=== PATIENT | female | born 1990 | race Caucasian/White ===

== ENCOUNTER 2018-10-29 15:30 | Observation (INO) | payer OTHER ==
[2018-10-29 16:33] LABS: Basophils # (auto) 0 uL; Basophils % (auto) 0.3 % (0.0-2.0); Eosinophils # (auto) 0.1 uL; Hematocrit 36.3 % (36.0-46.0); Hemoglobin 12.3 g/dL (12.2-16.2); Lymphocytes # (auto) 1.8 uL; Lymphocytes % (auto) 24.2 % (10.0-50.0); Mean Corpuscular Hemoglobin 29.6 pg (28.0-32.0); Mean Corpuscular Hgb Conc. 33.9 g/dL (32.0-36.0); Mean Corpuscular Volume 87.1 fL (80.0-100.0); Monocytes # (auto) 0.8 uL; Neutrophils # (auto) 4.7 uL; Neutrophils % (auto) 63.5 % (37.0-80.0); Platelet Count (auto) 199 10^3/uL (140-450); Red Blood Cells 4.17 10^6/uL (4.0-5.20); Red Cell Distribution Width 14.1 % (11.8-14.3); White Blood Cell 7.4 10^3/uL (4.4-10.8)
[2018-10-29 16:48] LABS: Albumin 2.7 g/dL (3.4-5.0); BUN/Creatinine Ratio 18.3; Calcium 8.4 mg/dL (8.5-10.1); Potassium 3.8 mmol/L (3.5-5.1)
[2018-10-29 16:50] LABS: Bilirubin, Total 0.5 mg/dL (0.2-1.0); Total Protein 6.6 g/dL (6.4-8.2)
[2018-10-29 17:03] LABS: INR 0.87 (0.9-1.15); Partial Thromboplastin Time 29.6 sec (23.78-33.04); Prothrombin Time 9.4 sec (9.27-12.13)
[2018-10-29 17:08] LABS: Alcohol, Urine < 3.0 mg/dL (0-5); Amphetamine Screen, Urine NEGATIVE (NEGATIVE); Barbiturate Scree,Urine NEGATIVE (NEGATIVE); Benzodiazephine Screen, Urine NEGATIVE (NEGATIVE); Cannabinoid Screen, Urine POSITIVE (NEGATIVE); Cocaine Screen, Urine NEGATIVE (NEGATIVE); Opiate Scree,Urine NEGATIVE (NEGATIVE); Phencyclidine Screen, Urine NEGATIVE (NEGATIVE)
[2018-10-29 17:20] LABS: Urine Bacteria NONE SEEN /hpf (None Seen); Urine Blood Negative /uL (Negative); Urine Specific Gravity 1.031 (1.001-1.035); Urine WBC 2 /hpf (0 - 5)
== END 2018-10-29 17:40 | disposition home or self-care (01) | DRG 833 ==
LOC: LDRP 15:30
PROVIDERS: ADMIT Specialist; ATTEND Specialist
DX: O26.893 Other specified pregnancy related conditions, third trimester (principal); O99.333 Smoking (tobacco) complicating pregnancy, third trimester; F17.210 Nicotine dependence, cigarettes, uncomplicated; Z3A.35 35 weeks gestation of pregnancy
CPT/HCPCS: 36415; 59025; 76805; 76818; 80053; 80307; 81001; 81002; 83021; 83036; 85025; 85610; 85660; 85730; 86592; 86703; 86762; 87070; 87340; G0378

== ENCOUNTER 2018-11-16 23:57 | Inpatient (IN) | payer SELFPAY ==
[~2018-11-16] VITALS: Ht 167.6 cm; Wt 104.3 kg
[2018-11-17] MEDS ORDERED: LACT. RINGERS/OXYTOCIN 20UNITS 1,000 ML IV SCH (00:21)
[2018-11-17] MEDS ORDERED: PHISODERM TOP SOLN 240ML BTL TOP PRN (00:30)
[2018-11-17] MEDS ORDERED: NALBUPHINE HCL 10 MG/1ml INJECTION IV PRN (00:30)
[2018-11-17] MEDS ORDERED: METHYLERGONOVINE MALEATE 0.2 MG/ML AMP IM PRN (00:30)
[2018-11-17] MEDS ORDERED: WITCH HAZEL-GLYCERIN PAD TOP PRN (00:30)
[2018-11-17] MEDS ORDERED: DERMOPLAST 60ML BOTTLE TOP PRN (00:30)
[2018-11-17] MEDS ORDERED: CARBOPROST TROMETHAMINE 250 MCG/1ML VIAL IM PRN (00:30)
[2018-11-17] MEDS ORDERED: LIDOCAINE 2%HCL (LOCAL ANESTH.) INJ 20ML MDV ID ONE (00:30)
[2018-11-17] MEDS ORDERED: PENICILLIN G POT 5MIL/D5 50ML 50 ML IV ONE (01:00)
[2018-11-17] MEDS: LACTATED RINGER'S 1,000 ML IV SCH ×3 (01:00→19:34)
[2018-11-17 01:29] LABS: Urine Bacteria FEW /hpf (None Seen); Urine Blood Negative /uL (Negative); Urine Mucus FEW (None Seen); Urine Specific Gravity 1.028 (1.001-1.035); Urine WBC 1 /hpf (0 - 5)
[2018-11-17 01:35] LABS: Basophils # (auto) 0 uL; Basophils % (auto) 0.3 % (0.0-2.0); Eosinophils # (auto) 0 uL; Eosinophils % (auto) 0.3 % (0.0-7.0); Hematocrit 38.3 % (36.0-46.0); Hemoglobin 12.5 g/dL (12.2-16.2); Lymphocytes # (auto) 1.9 uL; Lymphocytes % (auto) 23.6 % (10.0-50.0); Mean Corpuscular Hgb Conc. 32.6 g/dL (32.0-36.0); Mean Corpuscular Volume 88.8 fL (80.0-100.0); Monocytes # (auto) 0.6 uL; Neutrophils # (auto) 5.6 uL; Neutrophils % (auto) 68.8 % (37.0-80.0); Platelet Count (auto) 198 10^3/uL (140-450); Red Blood Cells 4.31 10^6/uL (4.0-5.20); Red Cell Distribution Width 14.9 % (11.8-14.3); White Blood Cell 8.2 10^3/uL (4.4-10.8)
[2018-11-17 01:40] LABS: Alcohol, Urine < 3.0 mg/dL (0-5); Amphetamine Screen, Urine NEGATIVE (NEGATIVE); Barbiturate Scree,Urine NEGATIVE (NEGATIVE); Benzodiazephine Screen, Urine NEGATIVE (NEGATIVE); Cannabinoid Screen, Urine POSITIVE (NEGATIVE); Cocaine Screen, Urine NEGATIVE (NEGATIVE); Phencyclidine Screen, Urine NEGATIVE (NEGATIVE)
[2018-11-17 01:43] LABS: INR 0.86 (0.9-1.15); Partial Thromboplastin Time 28.9 sec (23.64-32.05)
[2018-11-17 01:46] LABS: Albumin 2.9 g/dL (3.4-5.0); BUN/Creatinine Ratio 22.5; Calcium 8.5 mg/dL (8.5-10.1)
[2018-11-17 01:48] LABS: Bilirubin, Total 0.3 mg/dL (0.2-1.0); Total Protein 6.9 g/dL (6.4-8.2)
[2018-11-17 01:48] LABS: Opiate Scree,Urine NEGATIVE (NEGATIVE)
[2018-11-17] MEDS ORDERED: ACETAMINOPHEN 325 MG TAB PO PRN (04:00)
[2018-11-17] MEDS ORDERED: IBUPROFEN 600 MG TAB PO ONE (04:00)
[2018-11-17] MEDS: IBUPROFEN 600 MG TAB PO PRN ×3 (04:05→20:49)
[2018-11-17] MEDS ORDERED: PREN-96 PO (04:36)
--- NOTE | 2018-11-17 04:46 | NUR ---
Ambulation: 20g peripheral IV to right hand saline locked. Patient OOB with standby assistance by RN. Patient ambulated to bathroom with steady gait. Patient able to void 100 ML clear, pink tinged urine without difficulty. Pericare teaching provided with returned demonstration by patient. Clean peripad, dermoplast and tucks applied. Clean gown provided and bed linen changed. Patient ambulated back to bed with steady gait and no distress noted.
[2018-11-17] MEDS ORDERED: PENICILLIN G POTASSIUM 2,500,000 UNITS in D5W 5% 50 ML IV SCH (05:00)
[2018-11-17 07:29] VITALS: BP 117/57
--- NOTE | 2018-11-17 10:25 | NUR ---
patient signed AMA AND WENT OUTSIDE TO SMOKE.
[2018-11-17 11:03] VITALS: BP 118/71
--- NOTE | 2018-11-17 12:05 | NUR ---
REPORT GIVEN TO ROLANDO Garrett RN PATIENT IN STABLE CONDITION.
--- NOTE | 2018-11-17 12:05 | NUR ---
PT REPORT RECEIVED FROM Gayatri CAMARILLO RN ON STABLE PATIENT, ASSUMING CARE.
[2018-11-17 15:08] VITALS: BP 124/67
[2018-11-17 19:00] VITALS: BP 117/60
--- NOTE | 2018-11-17 22:12 | NUR ---
During rounds, this RN noted that pt was sleeping in bed with baby also in bed. Educated pt on risks of sharing bed with baby, reminded pt that bassinet/ open crib is available to pt for baby's sleeping needs. Discussed the ABC's of sleeping. Pt verbalizes understanding.
[2018-11-17 23:00] VITALS: BP_SYST 114; BP_SYST 117; BP_DIAS 56; BP_DIAS 59
[2018-11-18] MEDS: LACTATED RINGER'S 1,000 ML IV SCH (00:21)
[2018-11-18 03:00] VITALS: BP 118/58
[2018-11-18 06:05] LABS: RPR Non Reactive (Non Reactive)
[2018-11-18 07:00] VITALS: BP 115/65
--- NOTE | 2018-11-18 07:00 | NUR ---
Assessment complete. Board updated. Updated on POC, pain management. Verbalized understanding. Call light in reach. Sd rails up x2. bed low.
--- NOTE | 2018-11-18 08:55 | NUR ---
Pt off unit to smoke with significant other.
[2018-11-18] MEDS: IBUPROFEN 600 MG TAB PO PRN (10:12)
[2018-11-18 11:05] VITALS: BP 109/58
[2018-11-18 14:50] VITALS: BP 123/67
[2018-11-18 19:03] VITALS: BP 126/70
[2018-11-18] MEDS ORDERED: DOCUSATE SOD 100 MG CAP PO ONE (21:30)
[2018-11-18 23:00] VITALS: BP 103/74
[2018-11-19 03:14] VITALS: BP 106/52
[2018-11-19] MEDS: IBUPROFEN 600 MG TAB PO PRN (05:47)
--- NOTE | 2018-11-19 06:45 | NUR ---
Assessment completed. Updated on POC, possible discharge today, social service consult for depression score of 12, and positive THC for MOB and . Verbalized understanding. Board updated, call light in reach, sd rails up x2, bed low. Encouraged ambulation, hydration, and rest. Verbalized understanding. Reviewed post depression scale results, purpose and what a score of 12 means. Pt states that she is sometimes overwhelmed due to her significant other is not around to help as much as she needs. Educated on Public health clinic and 09/01 hotline to call if she needs. Informed of need to ask for help from all family and friends that live close and the need to rest when infant is resting. Verbalized understanding of all information.
[2018-11-19 07:00] VITALS: BP 120/60
--- NOTE | 2018-11-19 08:50 | NUR ---
SPOKE TO [facility], REPORT GIVEN ON THE PT. PER [facility] SHE WILL BE HERE SOMETIME TODAY.
[2018-11-19] MEDS ORDERED: DOCUSATE CALCIUM 240 MG CAP PO SCH (10:00)
--- NOTE | 2018-11-19 10:58 | NUR ---
[employer] worker [place] at bedsd with patient.
--- NOTE | 2018-11-19 11:50 | NUR ---
Discharge: Discharge instructions given as ordered. Pt encouraged to follow up with [facility] [employer] ANALYST as instructed. All questions and concerns addressed. Patient verbalized understanding. Medication reconciliation completed and copy given to patient. All required/requested vaccines given and copies of vaccinations given to patient. Patient encouraged to prepare to depart unit.
--- NOTE | 2018-11-19 12:15 | NUR ---
Discharge: Patient taken to vehicle via wheelchair with all personal belongings, accompanied by staff and family member. No distress noted at time of departure, no adverse changes in status since initial assessment.
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
== END 2018-11-19 12:15 | disposition home or self-care (01) | DRG 560 ==
LOC: EDUNIT# 23:57 → LDRP 23:57
PROVIDERS: ADMIT Obstetrics & Gynecology; ATTEND Obstetrics & Gynecology
PROC: 0HQ9XZZ Repair Perineum Skin, External Approach (ICD-10-PCS; principal; 2018-11-17)
PROC: 10E0XZZ Delivery of Products of Conception, External Approach (ICD-10-PCS; 2018-11-17)
PROC: 0UQMXZZ Repair Vulva, External Approach (ICD-10-PCS; 2018-11-17)
DX: O99.324 Drug use complicating childbirth (principal); F12.90 Cannabis use, unspecified, uncomplicated; O99.334 Smoking (tobacco) complicating childbirth; F17.200 Nicotine dependence, unspecified, uncomplicated; Z37.0 Single live birth; O70.0 First degree perineal laceration during delivery; Z3A.38 38 weeks gestation of pregnancy; O77.0 Labor and delivery complicated by meconium in amniotic fluid; O71.82 Other specified trauma to perineum and vulva
CPT/HCPCS: 36415; 59025; 59409; 80053; 80307; 81001; 81002; 85025; 85610; 85730; 86592; 86850; 86900; 86901; 96365; 96366; 96372; G0378; J2540; J2590; J7060

== ENCOUNTER 2019-10-17 08:43 | Observation (INO) | payer MEDICAID, OTHER ==
[~2019-10-17 08:43] MED LIST: PREN-96 PO
[2019-10-17 11:09] LABS: Amphetamine Screen, Urine NEGATIVE (NEGATIVE); Barbiturate Scree,Urine NEGATIVE (NEGATIVE); Benzodiazephine Screen, Urine NEGATIVE (NEGATIVE); Cannabinoid Screen, Urine POSITIVE (NEGATIVE); Cocaine Screen, Urine NEGATIVE (NEGATIVE); Opiate Scree,Urine NEGATIVE (NEGATIVE); Phencyclidine Screen, Urine NEGATIVE (NEGATIVE)
== END 2019-10-17 09:43 | disposition home or self-care (01) | DRG 833 ==
LOC: LDRP 08:43
PROVIDERS: ADMIT Specialist; ATTEND Specialist
DX: O62.9 Abnormality of forces of labor, unspecified (principal); Z3A.38 38 weeks gestation of pregnancy
CPT/HCPCS: 80307; 81002; G0378